=== PATIENT | male | born 1990 | race Caucasian/White ===

== ENCOUNTER → 2017-08-25 | Outpatient (CLI) | payer BC | END | disposition home or self-care (01) | LOC: CDC 08:11 | DX: Z01.810 Encounter for preprocedural cardiovascular examination (principal); K40.90 Unilateral inguinal hernia, without obstruction or gangrene, not specified as recurrent; R00.1 Bradycardia, unspecified; I49.8 Other specified cardiac arrhythmias | CPT/HCPCS: 93000 ==

== ENCOUNTER 2017-09-07 06:24 | Day surgery (SDC) | payer BC ==
[~2017-09-07] VITALS: Ht 170.2 cm; Wt 72.6 kg
[~2017-09-07 06:24] MED LIST: MULTIPLE VITAM1 EAC1 PO
[2017-09-07 06:54] VITALS: BP 109/57
[2017-09-07] MEDS ORDERED: COLACE100 MG PO (11:50)
[2017-09-07] MEDS ORDERED: DILAUDID4 MG PO (11:50)
[2017-09-07] MEDS ORDERED: ONDANSETRON HCL8 MG PO (11:50)
[2017-09-07 12:20] VITALS: BP 121/77
[2017-09-07 13:28] VITALS: BP 113/66
[2017-09-07 15:46] VITALS: BP 105/63
[2017-09-07 17:26] VITALS: BP 130/73
== END 2017-09-07 17:35 | disposition home or self-care (01) ==
LOC: SDC
PROC: 0YU64JZ Supplement Left Inguinal Region with Synthetic Substitute, Percutaneous Endoscopic Approach (ICD-10-PCS; principal; 2017-09-07)
DX: K40.90 Unilateral inguinal hernia, without obstruction or gangrene, not specified as recurrent (principal); F41.9 Anxiety disorder, unspecified; F42.9 Obsessive-compulsive disorder, unspecified; R00.1 Bradycardia, unspecified; Z88.1 Allergy status to other antibiotic agents
CPT/HCPCS: C1781; J0131; J1100; J1170; J1885; J2250; J2405; J2710; J3370; J7643